=== PATIENT | male | born 1965 | race Caucasian/White ===

== ENCOUNTER 2025-06-07 06:46 | Observation (INO) ==
[2025-06-07] MEDS: ONDANSETRON 4 MG/2 ML VIAL IV ONE (07:30)
[2025-06-07] MEDS: 0.9 % SODIUM CHLORIDE 1,000 ML IV ONE (07:30)
[2025-06-07] MEDS: KETOROLAC 15 MG/ML VIAL IV ONE (07:31)
[2025-06-07 07:56] LABS: Basophils # (Auto) 0.04 K/mcL (0.00-0.30); Basophils % (Auto) 0.3 % (0.0-2.0); Eosinophils # (Auto) 0.02 K/mcL (0.00-0.70); Eosinophils % (Auto) 0.2 % (0.0-7.0); Hematocrit 46.6 % (40.1-51.0); Hemoglobin 15.3 g/dL (13.7-17.5); Lymphocytes # (Auto) 0.61 K/mcL (1.50-4.80); Lymphocytes % (Auto) 5.1 % (15.5-49.0); Mean Corpuscular HGB Conc 32.8 g/dL (31.0-36.0); Monocytes # (Auto) 0.10 K/mcL (0.10-0.90); Monocytes % (Auto) 0.8 % (1.0-12.0); Neutrophils % (Auto) 93.2 % (38.0-78.0); Platelet Count 170 K/mcL (140-440); RBC 4.95 M/mcL (4.63-6.08); WBC 11.9 K/mcL (4.5-11.0)
[2025-06-07 08:14] LABS: ALT/SGPT 10 U/L (<40); AST/SGOT 40 U/L (<40); Albumin 3.6 gm/dL (3.2-5.2); Albumin/Globulin Ratio 1.3 (1.0-2.3); Alkaline Phosphatase 94 U/L (39-117); Anion Gap 17.0 (8.0-16.0); Bilirubin,Total 2.7 mg/dL (0.1-1.0); Blood Urea Nitrogen 17 mg/dL (6-20); Calcium 9.3 mg/dL (8.6-10.4); Carbon Dioxide 19 mmol/L (22-30); Chloride 99 mmol/L (96-108); Globulin 2.7 gm/dL (2.2-3.7); Glucose 155 mg/dL (70-105); Potassium 4.1 mmol/L (3.3-5.1); Sodium 135 mmol/L (133-145)
[2025-06-07] MEDS: metroNIDAZOLE 500 MG/100 ML BAG IV ONE (09:56)
[2025-06-07] MEDS: cefTRIAXone 1 GM VIAL IV ONE (09:56)
[2025-06-07 10:39] LABS: INR 1.2 (0.9-1.1); Prothrombin Time 16.8 sec (11.9-14.5)
[2025-06-07] MEDS: 0.9 % SODIUM CHLORIDE 500 ML IV ONE ×2 (11:36→13:16)
[2025-06-07] MEDS ORDERED: PROPOFOL 200 MG/20 ML VIAL IV ONE (13:44)
[2025-06-07] MEDS ORDERED: fentaNYL 100 MCG/2 ML VIAL ONE (13:44)
[2025-06-07] MEDS ORDERED: SUCCINYLCHOLINE 200 MG/10 ML VIAL IV ONE (13:47)
[2025-06-07] MEDS ORDERED: FAMOTIDINE/PF 20 MG/2 ML VIAL IV ONE (13:47)
[2025-06-07] MEDS ORDERED: ROCURONIUM 10 MG/ML ML IV ONE (13:47)
[2025-06-07] MEDS ORDERED: LIDOCAINE 2% PF 5 ML VIAL ONE (13:47)
[2025-06-07] MEDS ORDERED: ONDANSETRON 4 MG/2 ML VIAL ONE (13:47)
[2025-06-07] MEDS ORDERED: DEXAMETHASONE 10 MG/ML VIAL ONE (13:47)
[2025-06-07] MEDS ORDERED: GLYCOPYRROLATE 0.2 MG/ML VIAL IV ONE (13:47)
[2025-06-07] MEDS ORDERED: MAGNESIUM SULFATE 2 GM/50 ML BAG IV ONE (13:47)
[2025-06-07] MEDS ORDERED: HYDROmorphone 0.5 MG/0.5 ML SYRINGE ONE ×2 (13:55→15:54)
[2025-06-07] MEDS ORDERED: SUGAMMADEX SODIUM 200 MG/2 ML VIAL IV ONE (13:56)
[2025-06-07 14:03] LABS: Bacteria,Urine Few /hpf (0); Bilirubin,Urine Negative (Negative); Color,Urine DK. YELLOW; Glucose,Urine (UA) NEGATIVE (Negative); Ketones,Urine NEGATIVE (Negative); Leukocyte Esterase,Urine NEGATIVE /uL (Negative); PH,Urine 5.0 (5.0-9.0); Protein,Urine TRACE mg/dL (Negative); Specific Gravity,Urine 1.015 (1.000-1.035); Urobilinogen,Urine 1.0 mg/dL
[2025-06-07] MEDS ORDERED: PHENYLephrine 1 MG/10 ML SYRINGE (ANEST) ONE ×2 (14:35→15:51)
[2025-06-07] MEDS ORDERED: TRANEXAMIC ACID 1,000 MG/10 ML VIAL ONE (14:59)
[2025-06-07] MEDS ORDERED: VASOPRESSIN 20 UNIT/ML VIAL ONE (15:00)
[2025-06-07] MEDS ORDERED: 0.9 % SODIUM CHLORIDE 100 ML IV ONE (15:03)
[2025-06-07] MEDS ORDERED: fentaNYL 100 MCG/2 ML VIAL IV PRN (15:14)
[2025-06-07] MEDS ORDERED: ONDANSETRON 4 MG/2 ML VIAL IV PRN (15:14)
[2025-06-07] MEDS ORDERED: NALOXONE HCL 0.4 MG/ML VIAL IV PRN (15:14)
[2025-06-07] MEDS ORDERED: MEPERIDINE 25 MG/ML VIAL IV PRN (15:14)
[2025-06-07] MEDS ORDERED: METOPROLOL TARTRATE 5 MG/5 ML VIAL IV PRN (15:14)
[2025-06-07] MEDS ORDERED: BENZOCAINE/MENTHOL 1 LOZENGE PO PRN (15:14)
[2025-06-07] MEDS ORDERED: IPRATROPIUM/ALBUTEROL 3 ML AMPUL.NEB NEB PRN (15:14)
[2025-06-07] MEDS ORDERED: HYDROmorphone 0.5 MG/0.5 ML SYRINGE IV PRN (15:14)
[2025-06-07] MEDS ORDERED: METHOCARBAMOL 1,000 MG/10 ML VIAL IV PRN (15:14)
[2025-06-07] MEDS ORDERED: ALBUTEROL SULFATE 2.5 MG/3 ML NEBULIZER NEB PRN (16:20)
[2025-06-07] MEDS ORDERED: ONDANSETRON 4 MG ODT TABLET SL PRN (16:20)
[2025-06-07] MEDS: ALBUMIN HUMAN 25 GM/100 ML BAG IV ONE ×2 (17:11)
[2025-06-07 18:13] LABS: Hematocrit 31.0 % (40.1-51.0); Hemoglobin 9.8 g/dL (13.7-17.5); Mean Corpuscular HGB Conc 31.6 g/dL (31.0-36.0); Platelet Count 92 K/mcL (140-440); RBC 3.24 M/mcL (4.63-6.08); WBC 12.4 K/mcL (4.5-11.0)
[2025-06-07] MEDS: 0.9 % SODIUM CHLORIDE 1,000 ML IV SCH (18:18)
[2025-06-07 18:29] LABS: ALT/SGPT 8 U/L (<40); AST/SGOT 42 U/L (<40); Albumin 2.2 gm/dL (3.2-5.2); Albumin/Globulin Ratio 2.4 (1.0-2.3); Alkaline Phosphatase 35 U/L (39-117); Anion Gap 13.0 (8.0-16.0); Bilirubin,Total 1.2 mg/dL (0.1-1.0); Blood Urea Nitrogen 14 mg/dL (6-20); Calcium 5.6 mg/dL (8.6-10.4); Carbon Dioxide 12 mmol/L (22-30); Chloride 114 mmol/L (96-108); Globulin 0.9 gm/dL (2.2-3.7); Glucose 89 mg/dL (70-105); Potassium 3.2 mmol/L (3.3-5.1); Sodium 139 mmol/L (133-145)
[2025-06-07 18:35] LABS: Hypochromasia 1+ (None Seen); Macrocytosis 1+ (None Seen); RBC Morphology ABNORMAL (Normal)
[2025-06-07] MEDS: PIPERACILLIN SODIUM/TAZOBACTAM 3.375 GM in DEXTROSE 5% IN WATER 50 ML IV ONE (19:35)
[2025-06-07] MEDS: ONDANSETRON 4 MG/2 ML VIAL IV PRN (21:11)
[2025-06-07] MEDS: CALCIUM GLUCONATE 9.3 MEQ in DEXTROSE 5% IN WATER 50 ML IV ONE (21:22)
[2025-06-07] MEDS: LACTULOSE 20 GM/30 ML ORAL.SOL PO SCH (21:24)
[2025-06-07] MEDS: POTASSIUM CHLORIDE 20 MEQ TABLET PO ONE ×2 (21:25→21:26)
[2025-06-07] MEDS: SENNOSIDES 1 TABLET PO SCH (21:25)
[2025-06-07] MEDS: DOCUSATE SODIUM 100 MG CAPSULE PO SCH (21:25)
[2025-06-07] MEDS: CALCIUM GLUCONATE 4.65 MEQ/10 ML VIAL ONE (21:26)
[2025-06-07] MEDS: PIPERACILLIN SODIUM/TAZOBACTAM 3.375 GM in DEXTROSE 5% IN WATER 100 ML IV SCH (22:24)
[2025-06-07] MEDS: 0.9 % SODIUM CHLORIDE 10 ML SYRINGE IV SCH (22:24)
[2025-06-08 06:27] LABS: Basophils # (Auto) 0.02 K/mcL (0.00-0.30); Basophils % (Auto) 0.1 % (0.0-2.0); Eosinophils # (Auto) 0 K/mcL (0.00-0.70); Eosinophils % (Auto) 0 % (0.0-7.0); Hematocrit 30.3 % (40.1-51.0); Hemoglobin 9.9 g/dL (13.7-17.5); Lymphocytes # (Auto) 0.49 K/mcL (1.50-4.80); Lymphocytes % (Auto) 2.8 % (15.5-49.0); Mean Corpuscular HGB Conc 32.7 g/dL (31.0-36.0); Monocytes # (Auto) 0.94 K/mcL (0.10-0.90); Monocytes % (Auto) 5.4 % (1.0-12.0); Neutrophils % (Auto) 91.6 % (38.0-78.0); Platelet Count 97 K/mcL (140-440); RBC 3.25 M/mcL (4.63-6.08); WBC 17.5 K/mcL (4.5-11.0)
[2025-06-08 06:39] LABS: ALT/SGPT 35 U/L (<40); AST/SGOT 197 U/L (<40); Albumin 3.1 gm/dL (3.2-5.2); Albumin/Globulin Ratio 1.8 (1.0-2.3); Alkaline Phosphatase 44 U/L (39-117); Anion Gap 9.0 (8.0-16.0); Bilirubin,Total 1.1 mg/dL (0.1-1.0); Blood Urea Nitrogen 24 mg/dL (6-20); Calcium 8.4 mg/dL (8.6-10.4); Carbon Dioxide 20 mmol/L (22-30); Chloride 105 mmol/L (96-108); Globulin 1.7 gm/dL (2.2-3.7); Glucose 142 mg/dL (70-105); Potassium 5.3 mmol/L (3.3-5.1); Sodium 134 mmol/L (133-145)
[2025-06-08] MEDS: ALBUMIN HUMAN 25 GM/100 ML BAG IV SCH (09:43)
[2025-06-08] MEDS: ZOLPIDEM 5 MG TABLET PO PRN (22:27)
[2025-06-09 06:36] LABS: Basophils # (Auto) 0.01 K/mcL (0.00-0.30); Basophils % (Auto) 0.1 % (0.0-2.0); Eosinophils # (Auto) 0 K/mcL (0.00-0.70); Eosinophils % (Auto) 0 % (0.0-7.0); Hematocrit 24.5 % (40.1-51.0); Hemoglobin 8.0 g/dL (13.7-17.5); Lymphocytes # (Auto) 0.46 K/mcL (1.50-4.80); Lymphocytes % (Auto) 4.9 % (15.5-49.0); Mean Corpuscular HGB Conc 32.7 g/dL (31.0-36.0); Monocytes # (Auto) 0.91 K/mcL (0.10-0.90); Monocytes % (Auto) 9.7 % (1.0-12.0); Neutrophils % (Auto) 85.0 % (38.0-78.0); Platelet Count 90 K/mcL (140-440); RBC 2.57 M/mcL (4.63-6.08); WBC 9.4 K/mcL (4.5-11.0)
[2025-06-09 06:43] LABS: ALT/SGPT 21 U/L (<40); AST/SGOT 81 U/L (<40); Albumin 3.6 gm/dL (3.2-5.2); Albumin/Globulin Ratio 2.6 (1.0-2.3); Alkaline Phosphatase 40 U/L (39-117); Anion Gap 8.0 (8.0-16.0); Bilirubin,Total 0.7 mg/dL (0.1-1.0); Blood Urea Nitrogen 31 mg/dL (6-20); Calcium 8.6 mg/dL (8.6-10.4); Carbon Dioxide 20 mmol/L (22-30); Chloride 107 mmol/L (96-108); Globulin 1.4 gm/dL (2.2-3.7); Glucose 139 mg/dL (70-105); Potassium 4.5 mmol/L (3.3-5.1); Sodium 135 mmol/L (133-145)
[2025-06-09 07:11] LABS: INR 1.5 (0.9-1.1); Partial Thromboplastin Time 36.6 sec (20.0-37.0); Prothrombin Time 19.2 sec (11.9-14.5)
== END 2025-06-09 10:51 | disposition home or self-care (01) ==
LOC: ED 06:46 → MEDSUR 14:06 → SUR 14:06
PROVIDERS: ADMIT Surgery; ATTEND Surgery